=== PATIENT | male | born 1975 | race Caucasian/White ===

== ENCOUNTER 2017-03-05 12:34 | Emergency (ER) | payer SELFPAY ==
[~2017-03-05] VITALS: Ht 175.3 cm; Wt 186.1 kg
[~2017-03-05 12:34] MED LIST: ALBUTEROL SULF8.5 GM IH; BENADRYL25 MG PO; BENADRYL50 MG PO; CLEOCIN300 MG PO; CLINDAMYCIN HC300 MG PO; IBUPROFEN800 MG PO; LISINOPRIL10 MG PO; LISINOPRIL20 MG PO; NAPROSYN500 MG PO; PEPCID20 MG PO; PREDNISONE20 MG PO; ULTRAM50 MG PO; VICODIN 5-3001 EACH PO; ZITHROMAX Z-PA250 MG PO
[2017-03-05 14:33] LABS: HEMATOCRIT 46.7 % (38.0-50.0); MCH 31.4 PG (29.0-34.0); MCV 87.3 FL (86-99); PLATELET COUNT 201 K/uL (156-360); RBC DIS.WIDTH-CV 12.8 % (11.8-14.6); RBC DIS.WIDTH-SD 40.6 % (39-53); RED BLOOD COUNT 5.35 M/uL (4.00-5.50); WHITE BLOOD COUNT 6.8 K/uL (4.1-10.2)
[2017-03-05 14:41] LABS: D-DIMER ELISA < 150.00 ng/mLDDU (<230)
[2017-03-05 14:42] LABS: CHLORIDE 103 mEq/L (99-109); POTASSIUM 3.7 mEq/L (3.7-5.4); SODIUM 138 mEq/L (136-147)
[2017-03-05 14:43] LABS: GLUCOSE 236 mg/dL (70-99)
[2017-03-05 14:45] LABS: ANION GAP 12 MEQ/L (2-14)
[2017-03-05 14:47] LABS: GFR ESTIMATE (CALCULATED) > 59 mL/min/
[2017-03-05 14:48] LABS: UREA NITROGEN (BUN) 13 mg/dL (9-23)
[2017-03-05 14:54] LABS: TROP-I INTERPRETATION NEGATIVE; TROPONIN-I < 0.01 ng/mL (0.0-0.30)
[2017-03-05] MEDS ORDERED: PREDNISONE20 MG PO (15:00)
[2017-03-05] MEDS ORDERED: PROVENTIL HFA6.7 GM IH (15:00)
[2017-03-05 15:16] VITALS: BP 155/94
== END 2017-03-05 15:17 | disposition home or self-care (01) ==
LOC: EME 12:34
PROVIDERS: Emergency Medicine
DX: R07.9 Chest pain, unspecified (principal); R05 Cough; J20.9 Acute bronchitis, unspecified; E78.5 Hyperlipidemia, unspecified; I10 Essential (primary) hypertension; F17.200 Nicotine dependence, unspecified, uncomplicated; Z88.0 Allergy status to penicillin; Z88.8 Allergy status to other drugs, medicaments and biological substances
CPT/HCPCS: 71020; 80048; 84484; 85027; 85379; 93005; 94640; 99281; 99284